=== PATIENT | male | born 1945 | race Caucasian/White ===

== ENCOUNTER 2016-05-24 09:23 | Day surgery (SDC) | payer MEDICARE, OTHER ==
[~2016-05-24] VITALS: Ht 167.6 cm; Wt 93.0 kg
[~2016-05-24 09:23] MED LIST: ALPR-475 PO; ASPI-430 PO; ATOR20TA PO; CLOP75TA22 PO; EZET10TA3 PO; LEVO137T22 PO; LISI-167 PO; LOSA50TA6 PO; METF500T4 PO; METO50TA4 PO; NIAC1000 PO; NIAC500T PO
[2016-05-24 10:31] VITALS: BP 144/76
[2016-05-24] MEDS ORDERED: MIDAZOLAM 1 MG/ML, 5ML ONE (11:32)
[2016-05-24] MEDS ORDERED: PROTAMINE SULFATE 10 MG/ML, 25ML ONE (11:32)
[2016-05-24] MEDS ORDERED: HEPARIN 1,000 UNITS/ML, 10ML ONE (11:33)
[2016-05-24] MEDS ORDERED: NALOXONE 1 MG/ML, 2ML ONE (11:33)
[2016-05-24] MEDS ORDERED: NITROGLYCERIN 5 MG/ML, 10ML ONE (11:33)
[2016-05-24] MEDS ORDERED: FLUMAZENIL 0.1 MG/1 ML, 5ML ONE (11:33)
[2016-05-24] MEDS ORDERED: FENTANYL PF 100 MCG/2ML ONE (11:33)
[2016-05-24] MEDS ORDERED: VISIPAQUE 270 MG/ML, 150ML BOTTLE ONE (12:00)
== END 2016-05-24 16:50 | disposition home or self-care (01) ==
LOC: OUT 09:23
PROVIDERS: ATTEND Internal Medicine Cardiovascular Disease
DX: I70.211 Atherosclerosis of native arteries of extremities with intermittent claudication, right leg (principal); I11.9 Hypertensive heart disease without heart failure; E11.9 Type 2 diabetes mellitus without complications; Z86.14 Personal history of Methicillin resistant Staphylococcus aureus infection; E78.5 Hyperlipidemia, unspecified; Z95.5 Presence of coronary angioplasty implant and graft; I25.2 Old myocardial infarction; Z87.891 Personal history of nicotine dependence; E78.00 Pure hypercholesterolemia, unspecified
CPT/HCPCS: 37220; 37225; 75625; 75716; C1714; C1725; C1751; C1760; C1769; C1884; C1894; C2623; J1644; J2250; J3010; Q9966; 99156; 99157; J2720; J2310

== ENCOUNTER → 2017-04-06 | Outpatient (CLI) | payer MEDICARE, OTHER ==
[~2017-04-06] MED LIST changes: -CLOP75TA22 PO; +CLOP75TA52 PO; +EZET10TA18 PO; -EZET10TA3 PO; -LEVO137T22 PO; +LEVO137T25 PO; +REGADENOSON 0.4 MG/5 ML SYRINGE ONE
== END | disposition home or self-care (01) ==
LOC: CVU 06:44
PROVIDERS: ATTEND Internal Medicine Cardiovascular Disease
DX: I65.23 Occlusion and stenosis of bilateral carotid arteries (principal); I10 Essential (primary) hypertension; Z98.61 Coronary angioplasty status
CPT/HCPCS: 78452; 93017; 93880; A9502; J2785

== ENCOUNTER 2018-02-27 08:34 | Outpatient (CLI) | payer MEDICARE, OTHER ==
[~2018-02-27 08:34] MED LIST changes: -LOSA50TA6 PO; +LOSA50TA7 PO; +METF500T17 PO; -METF500T4 PO
== END 2018-02-27 23:59 | disposition home or self-care (01) ==
LOC: CFH 08:34
PROVIDERS: ATTEND Internal Medicine Cardiovascular Disease
DX: I65.29 Occlusion and stenosis of unspecified carotid artery (principal); I10 Essential (primary) hypertension
CPT/HCPCS: 78452; 93017; A9502; J2785

== ENCOUNTER → 2018-03-06 | Outpatient (CLI) | payer MEDICARE, OTHER ==
[~2018-03-06] MED LIST changes: -REGADENOSON 0.4 MG/5 ML SYRINGE ONE
== END | disposition home or self-care (01) ==
LOC: CFH 08:36
PROVIDERS: ATTEND Internal Medicine Cardiovascular Disease
DX: I25.10 Atherosclerotic heart disease of native coronary artery without angina pectoris (principal); I65.23 Occlusion and stenosis of bilateral carotid arteries; I10 Essential (primary) hypertension
CPT/HCPCS: 76706; 93880

== ENCOUNTER → 2019-01-29 | Outpatient (CLI) | payer MEDICARE, OTHER ==
[~2019-01-29] MED LIST changes: -ALPR-475 PO; +ALPR0.5T7 PO; -EZET10TA18 PO; +EZET10TA70 PO; +LOSA50TA14 PO; -LOSA50TA7 PO; +REGADENOSON 0.4 MG/5 ML SYRINGE ONE
== END | disposition home or self-care (01) ==
LOC: CVU 07:26
PROVIDERS: ATTEND Internal Medicine Cardiovascular Disease
DX: I21.19 ST elevation (STEMI) myocardial infarction involving other coronary artery of inferior wall (principal); I65.23 Occlusion and stenosis of bilateral carotid arteries; I10 Essential (primary) hypertension; E78.2 Mixed hyperlipidemia
CPT/HCPCS: 78452; 93017; 93880; A9502; J2785

== ENCOUNTER 2019-03-09 07:33 | Outpatient (CLI) | payer MEDICARE, OTHER ==
[~2019-03-09 07:33] MED LIST changes: -REGADENOSON 0.4 MG/5 ML SYRINGE ONE
== END 2019-03-09 23:59 | disposition home or self-care (01) ==
LOC: CVU 07:33
PROVIDERS: ATTEND Internal Medicine Cardiovascular Disease
DX: I70.211 Atherosclerosis of native arteries of extremities with intermittent claudication, right leg (principal); I70.292 Other atherosclerosis of native arteries of extremities, left leg
CPT/HCPCS: 93922; 93925